=== PATIENT | male | born 2000 | race Native Hawaiian/Other Pacific Islander ===

== ENCOUNTER 2022-03-09 17:00 | Emergency (ER) | payer BC ==
[~2022-03-09] VITALS: Ht 188 cm; Wt 86.2 kg
[2022-03-09 17:00] VITALS: BP 121/75; TEMP 98.5
== END 2022-03-09 18:10 | disposition home or self-care (01) ==
LOC: ED 17:00
DX: H57.11 Ocular pain, right eye (principal); W37.8XXA Explosion and rupture of other pressurized tire, pipe or hose, initial encounter; Y92.89 Other specified places as the place of occurrence of the external cause
CPT/HCPCS: 99283